=== PATIENT | male | born 2000 | race Caucasian/White ===

== ENCOUNTER 2021-08-19 13:37 | Emergency (ER) | payer OTHER ==
[2021-08-19 13:43] VITALS: BP 120/78; PULSE 100; TEMP 98.4; BMI 25.8
[2021-08-19] MEDS ORDERED: MAG HYDROX/AL HYDROX/SIMETH 30 ML UNIT-DOSE CUP PO ONE (14:30)
[2021-08-19] MEDS ORDERED: LACTULOSE 20 GM/30 ML UDC (FOR ORAL USE ONLY) PO ONE (14:30)
[2021-08-19] MEDS ORDERED: POLYETHYLENE GLYCOL 3350 119 GM BTL PO ONE (14:31)
[2021-08-19] MEDS ORDERED: LACTULOSE 20 GM/30 ML UDC (FOR ORAL USE ONLY) ONE (14:35)
[2021-08-19] MEDS ORDERED: MAG HYDROX/AL HYDROX/SIMETH 30 ML UNIT-DOSE CUP ONE (14:35)
[2021-08-19] MEDS ORDERED: POLYETHYLENE GLYCOL (HEALTHYLAX) 3350 17 GM PACKET ONE (14:35)
== END 2021-08-19 16:26 | disposition left against medical advice (07) ==
LOC: JER 13:37
DX: R10.9 Unspecified abdominal pain (principal); K59.00 Constipation, unspecified
CPT/HCPCS: 74019-TC-FY; 99284-25

== ENCOUNTER 2021-08-22 01:08 | Emergency (ER) | payer OTHER ==
[2021-08-22 02:02] VITALS: BP 114/74; PULSE 66; TEMP 97.7; BMI 25.0
[2021-08-22] MEDS ORDERED: FAMOTIDINE 20 MG/50 ML IVPB 20 MG/50 ML MG IVPB ONE ×2 (02:24→02:39)
[2021-08-22] MEDS ORDERED: ACETAMINOPHEN 1000 MG/100 ML BAG IVPB ONE (02:25)
[2021-08-22] MEDS ORDERED: ACETAMINOPHEN INJECTION 100 ML IVPB ONE (02:39)
[2021-08-22 02:55] LABS: BASO % 0.7 % (0-2.0); EOS % 7.6 % (0-4.5); HEMATOCRIT 41.5 % (35.4-49); HEMOGLOBIN 14.2 GM/dL (11.7-16.9); LYMPH % 47.5 % (8-40); MCH 30.2 pg (25.7-33.7); MCHC 34.2 g/dl (32.0-35.9); MEAN CELL VOLUME 88.2 fl (80-96); MEAN PLT VOLUME 8.4 fl (7.5-11.1); MONO % 7.2 % (3.8-10.2); PLATELET COUNT 206 10^3/uL (134-434); RDW 12.5 % (11.9-15.9); WHITE BLOOD COUNT 7.7 K/mm3 (4.0-10.0)
[2021-08-22 03:19] LABS: ALBUMIN 3.8 g/dl (3.4-5.0); BLOOD UREA NITROGEN 13.5 mg/dL (7-18); CALCIUM 9.3 mg/dL (8.5-10.1)
[2021-08-22 03:22] LABS: CREATININE 1.1 mg/dL (0.55-1.3)
[2021-08-22 03:24] LABS: BILIRUBIN,TOTAL 0.4 mg/dL (0.2-1); TOT PROT 6.6 g/dl (6.4-8.2)
[2021-08-22 03:49] LABS: EPI CELLS 10 /uL (0-25.1); HYALINE CASTS 7 /uL (0-3.1); PH,URINE 6.5 (5.0-8.0); URINE APPEARANCE CLEAR; URINE BACTERIA 1 /uL (0-1359); URINE BILIRUBIN NEGATIVE (NEGATIVE); URINE COLOR YELLOW; URINE GLUCOSE (UA) NEGATIVE (NEGATIVE); URINE KETONE TRACE (NEGATIVE); URINE LEUK ESTERASE TRACE (NEGATIVE); URINE NITRITE NEGATIVE (NEGATIVE); URINE PROTEIN NEGATIVE (NEGATIVE); URINE RBC 1 /uL (0-23.9); URINE WBC 37 /uL (0-25.8)
== END 2021-08-22 04:38 ==
LOC: JER 01:08
PROC: 3E0333Z Introduction of Anti-inflammatory into Peripheral Vein, Percutaneous Approach (ICD-10-PCS; principal; 2021-08-22)
PROC: 3E033GC Introduction of Other Therapeutic Substance into Peripheral Vein, Percutaneous Approach (ICD-10-PCS; 2021-08-22)
DX: R10.30 Lower abdominal pain, unspecified (principal)
CPT/HCPCS: 36415; 74176-TC; 80053; 81003; 83690; 85025; 87086; 87491; 87591; 99284-25

== ENCOUNTER 2021-11-20 03:28 | Emergency (ER) | payer OTHER ==
[2021-11-20 03:41] VITALS: TEMP 98.7; BMI 24.2
[2021-11-20] MEDS ORDERED: MAG HYDROX/AL HYDROX/SIMETH -MYLANTA- ORAL SUSPENSION PO ONE (04:43)
[2021-11-20] MEDS ORDERED: FAMOTIDINE 10 MG TABLET PO ONE (04:43)
[2021-11-20] MEDS ORDERED: ACETAMINOPHEN 500 MG TABLET (FP) PO ONE (04:43)
[2021-11-20] MEDS ORDERED: MAG HYDROX/AL HYDROX/SIMETH 30 ML UNIT-DOSE CUP ONE (05:13)
[2021-11-20] MEDS ORDERED: FAMOTIDINE 10 MG TABLET ONE (05:13)
[2021-11-20] MEDS ORDERED: ACETAMINOPHEN 325 MG TABLET (FP) ONE (05:13)
[2021-11-20 06:10] VITALS: RESP 16
[2021-11-20 07:06] LABS: PH,URINE 5.5 (5.0-8.0); URINE APPEARANCE CLEAR; URINE BILIRUBIN NEGATIVE (NEGATIVE); URINE COLOR YELLOW; URINE GLUCOSE (UA) NEGATIVE (NEGATIVE); URINE KETONE NEGATIVE (NEGATIVE); URINE LEUK ESTERASE NEGATIVE (NEGATIVE); URINE NITRITE NEGATIVE (NEGATIVE); URINE PROTEIN NEGATIVE (NEGATIVE)
[2021-11-20 07:19] LABS: BASO % 0.4 % (0-2.0); HEMATOCRIT 42.7 % (35.4-49); HEMOGLOBIN 14.5 GM/dL (11.7-16.9); LYMPH % 42.2 % (8-40); MCH 29.9 pg (25.7-33.7); MCHC 33.9 g/dl (32.0-35.9); MEAN CELL VOLUME 88.2 fl (80-96); MEAN PLT VOLUME 9.1 fl (7.5-11.1); MONO % 8.2 % (3.8-10.2); NEUT % 44.2 % (42.8-82.8); PLATELET COUNT 212 10^3/uL (134-434); RBC 4.84 M/mm3 (4.00-5.60); RDW 12.2 % (11.9-15.9); WHITE BLOOD COUNT 8.1 K/mm3 (4.0-10.0)
[2021-11-20 08:03] LABS: CALCIUM 8.7 mg/dL (8.5-10.1)
[2021-11-20 08:04] LABS: BLOOD UREA NITROGEN 11.2 mg/dL (7-18)
[2021-11-20 08:07] LABS: CREATININE 0.8 mg/dL (0.55-1.3)
[2021-11-20 08:09] LABS: BILIRUBIN,TOTAL 0.6 mg/dL (0.2-1); TOT PROT 6.8 g/dl (6.4-8.2)
[2021-11-20 09:31] VITALS: BP 114/61; PULSE 62
== END 2021-11-20 09:32 | disposition home or self-care (01) ==
LOC: JER 03:28
DX: R10.9 Unspecified abdominal pain (principal)
CPT/HCPCS: 36415; 80053; 81003; 83690; 85025; 87086; 99284-25

== ENCOUNTER 2022-02-11 21:48 | Emergency (ER) | payer OTHER ==
[2022-02-11 22:00] VITALS: BP 120/76; PULSE 82; RESP 17; TEMP 97.9; BMI 23.3
[2022-02-11] MEDS ORDERED: ONDANSETRON 4 MG TABLET PO ONE (22:43)
[2022-02-11] MEDS ORDERED: MAG HYDROX/AL HYDROX/SIMETH -MYLANTA- ORAL SUSPENSION PO ONE (22:43)
[2022-02-11] MEDS ORDERED: FAMOTIDINE 20 MG/50 ML IVPB 20 MG/50 ML MG IVPB ONE (22:43)
[2022-02-11] MEDS ORDERED: ACETAMINOPHEN 325 MG TABLET (FP) PO ONE (22:44)
[2022-02-11] MEDS ORDERED: FAMOTIDINE 20 MG TABLET PO ONE (22:56)
[2022-02-11] MEDS ORDERED: ONDANSETRON *ODT* 4 MG TABLET ONE (23:23)
[2022-02-11] MEDS ORDERED: MAG HYDROX/AL HYDROX/SIMETH 30 ML UNIT-DOSE CUP ONE (23:23)
[2022-02-11] MEDS ORDERED: FAMOTIDINE 20 MG TABLET ONE (23:23)
[2022-02-11] MEDS ORDERED: ACETAMINOPHEN 325 MG TABLET (FP) ONE (23:23)
== END 2022-02-12 00:51 | disposition home or self-care (01) ==
LOC: JER 21:48
PROC: 3E033NZ Introduction of Analgesics, Hypnotics, Sedatives into Peripheral Vein, Percutaneous Approach (ICD-10-PCS; principal; 2022-02-11)
DX: R10.13 Epigastric pain (principal)
CPT/HCPCS: 76705-TC; 99284-25

== ENCOUNTER 2022-03-16 04:00 | Emergency (ER) | payer OTHER ==
[2022-03-16 06:12] VITALS: BP 143/77; PULSE 66; RESP 20; TEMP 97.6; BMI 25.8
[2022-03-16] MEDS ORDERED: ACETAMINOPHEN 1000 MG/100 ML BAG IVPB ONE (06:30)
[2022-03-16] MEDS ORDERED: ONDANSETRON 4 MG/2 ML VIAL IVPUSH ONE (06:30)
[2022-03-16] MEDS ORDERED: FAMOTIDINE 20 MG/50 ML IVPB 20 MG/50 ML MG IVPB ONE ×2 (06:30→06:39)
[2022-03-16] MEDS ORDERED: SODIUM CHLORIDE 0.9% 500 ML INFUS.BAG IV ONE (06:30)
[2022-03-16] MEDS ORDERED: ACETAMINOPHEN INJECTION 100 ML IVPB ONE (06:38)
[2022-03-16] MEDS ORDERED: ONDANSETRON 4 MG/2 ML VIAL ONE (06:38)
[2022-03-16 07:39] LABS: BASO % 1.1 % (0-2.0); EOS % 6.9 % (0-4.5); HEMATOCRIT 43.5 % (35.4-49); HEMOGLOBIN 14.9 GM/dL (11.7-16.9); LYMPH % 45.5 % (8-40); MCH 30.3 pg (25.7-33.7); MCHC 34.4 g/dl (32.0-35.9); MEAN CELL VOLUME 88.1 fl (80-96); MEAN PLT VOLUME 8.7 fl (7.5-11.1); MONO % 8.9 % (3.8-10.2); NEUT % 37.6 % (42.8-82.8); PLATELET COUNT 205 10^3/uL (134-434); RBC 4.93 M/mm3 (4.00-5.60); RDW 12.2 % (11.9-15.9); WHITE BLOOD COUNT 4.9 K/mm3 (4.0-10.0)
[2022-03-16 07:57] LABS: CALCIUM 9.4 mg/dL (8.5-10.1)
[2022-03-16 07:58] LABS: ALBUMIN 3.8 g/dl (3.4-5.0); BLOOD UREA NITROGEN 16.9 mg/dL (7-18)
[2022-03-16 08:01] LABS: CREATININE 0.9 mg/dL (0.55-1.3)
[2022-03-16 08:02] LABS: TOT PROT 6.8 g/dl (6.4-8.2)
[2022-03-16 08:03] LABS: BILIRUBIN,TOTAL 0.6 mg/dL (0.2-1)
[2022-03-16 09:49] LABS: URINE APPEARANCE CLEAR; URINE BILIRUBIN NEGATIVE (NEGATIVE); URINE COLOR YELLOW; URINE GLUCOSE (UA) NEGATIVE (NEGATIVE); URINE KETONE TRACE (NEGATIVE); URINE LEUK ESTERASE NEGATIVE (NEGATIVE); URINE NITRITE NEGATIVE (NEGATIVE); URINE PROTEIN NEGATIVE (NEGATIVE)
== END 2022-03-16 09:30 | disposition home or self-care (01) ==
LOC: JER 04:00
PROC: 3E0333Z Introduction of Anti-inflammatory into Peripheral Vein, Percutaneous Approach (ICD-10-PCS; principal; 2022-03-16)
PROC: 3E033GC Introduction of Other Therapeutic Substance into Peripheral Vein, Percutaneous Approach (ICD-10-PCS; 2022-03-16)
PROC: 3E033GC Introduction of Other Therapeutic Substance into Peripheral Vein, Percutaneous Approach (ICD-10-PCS; 2022-03-16)
DX: R10.13 Epigastric pain (principal); R10.32 Left lower quadrant pain
CPT/HCPCS: 36415; 80053; 81003; 83690; 85025; 87086; 99284-25

== ENCOUNTER 2022-03-26 22:29 | Emergency (ER) | payer OTHER ==
[2022-03-26 22:46] VITALS: BP 108/72; PULSE 79; RESP 18; TEMP 98.6; BMI 26.6
== END 2022-03-27 | disposition left against medical advice (07) ==
LOC: JER 22:29
DX: R10.31 Right lower quadrant pain (principal); R19.7 Diarrhea, unspecified
CPT/HCPCS: 99281-25